=== PATIENT | female | born 1960 | race Caucasian/White ===

== ENCOUNTER 2016-07-18 11:35 | Emergency (ER) | payer MEDICAID ==
[~2016-07-18] VITALS: Ht 157.5 cm; Wt 81.8 kg
[~2016-07-18 11:35] MED LIST: AMARYL1 MG PO; AMOXICILLIN 50500 MG PO; AMOXICILLIN 8751 TAB PO; DIOVAN/HCT 12.51 TA1; FIORICET 325 MG1 TA1 PO; GLUCOPHAGE XR500 M1; GLUCOPHAGE XR500 M1 PO; GLUCOPHAGE500 MG/TAB PO; GUAIFEN AC 10120 ML PO; MOTRIN100 M1 PO; NO HOME MEDICATIONS; NORCO 325 MG-51 TAB PO; PHENERGAN 25 TA25 MG PO; PHENERGAN25 MG RC; PRINIVIL10 MG PO; ROBAXIN 75750 MG/TAB PO; SUDAFED 12HR120 MG PO; TYLENOL 325MG325 MG PO; XYAL5 MG; ZOFRAN 4MG T4 MG/TAB PO; ZOFRAN ODT4 MG PO
[2016-07-18 11:38] VITALS: TEMP 97
[2016-07-18 12:35] LABS: BASO # 0.1 (0.0-0.2); EOS # 0.1 (0.0-0.7); EOS % 1.1 % (0-4.0); GRAN # 3.3 (1.4-6.5); GRAN % 54.1 % (42.2-75.2); HEMATOCRIT 43.1 % (37.0-47.0); HEMOGLOBIN 14.7 g/dl (12.5-16.0); LYMPH # 2.3 (1.2-3.4); LYMPH % 36.7 % (20.0-51.0); MEAN CELL VOLUME 92 fl (80.0-100.0); MEAN CORPUSCULAR HEMOGLOBIN 31 pg (27.0-31.0); MEAN CORPUSCULAR HGB CONC 34 g/dl (33.0-37.0); MEAN PLATELET VOLUME 9.9 fl (7.4-10.4); MONO # 0.4 (0.1-0.6); MONO % 6.8 % (1.7-9.3); PLATELET COUNT 327 K/mm3 (130-400); RED BLOOD COUNT 4.69 M/mm3 (4.10-5.30); REDCELL DISTRIBUTION WIDTH-CV 12.5 % (11.5-14.5); WHITE BLOOD COUNT 6.2 K/mm3 (4.8-10.8)
[2016-07-18 12:55] LABS: ANION GAP 13 mmol/L (7-16); BLOOD UREA NITROGEN 9 mg/dL (7-17); CALCIUM 9.9 mg/dL (8.4-10.2); CARBON DIOXIDE 28 mmol/L (22-30); CHLORIDE 96 mmol/L (98-107); CREATININE, serum 0.51 mg/dL (0.52-1.25); GLUCOSE 339 mg/dL (74-106); POTASSIUM 4.1 mmol/L (3.4-5.0); SODIUM 137 mmol/L (137-145)
[2016-07-18 12:58] LABS: ACETAMINOPHEN < 10 ug/mL (10-30); SALICYLATE < 1.0 mg/dL
[2016-07-18 12:59] LABS: AMPHETAMINE URINE NEGATIVE; BARBITURATES URINE NEGATIVE; BENZODIAZEPINES URINE NEGATIVE; BUPRENORPHINE URINE NEGATIVE; METHADONE URINE NEGATIVE; OPIATES URINE NEGATIVE; OXYCODONE URINE NEGATIVE; PHENCYCLIDINE URINE NEGATIVE; PROPOXYPHENE URINE NEGATIVE; THC CANNABINOIDS URINE NEGATIVE
[2016-07-18] MEDS ORDERED: GLUCOPHAGE500 MG/TAB PO (15:56)
[2016-07-18 16:08] VITALS: BP 140/95; PULSE 80
== END 2016-07-18 16:09 | disposition home or self-care (01) ==
LOC: COL.ER 11:35
PROVIDERS: Physician Assistant
DX: R45.851 Suicidal ideations (principal); R45.1 Restlessness and agitation; F32.9 Major depressive disorder, single episode, unspecified; E11.9 Type 2 diabetes mellitus without complications; T38.3X6A Underdosing of insulin and oral hypoglycemic [antidiabetic] drugs, initial encounter

== ENCOUNTER 2016-09-10 11:12 | Emergency (ER) | payer MEDICAID ==
[~2016-09-10] VITALS: Ht 157.5 cm; Wt 81.8 kg
[2016-09-10 11:15] VITALS: TEMP 98
[2016-09-10 12:24] LABS: BASO # 0.1 (0.0-0.2); BASO % 0.9 % (0.0-2.0); EOS # 0.1 (0.0-0.7); EOS % 1.1 % (0-4.0); GRAN # 4.2 (1.4-6.5); GRAN % 53.1 % (42.2-75.2); HEMATOCRIT 41.8 % (37.0-47.0); HEMOGLOBIN 14.6 g/dl (12.5-16.0); LYMPH % 38.4 % (20.0-51.0); MEAN CELL VOLUME 90 fl (80.0-100.0); MEAN CORPUSCULAR HEMOGLOBIN 32 pg (27.0-31.0); MEAN CORPUSCULAR HGB CONC 35 g/dl (33.0-37.0); MEAN PLATELET VOLUME 10.2 fl (7.4-10.4); MONO # 0.5 (0.1-0.6); MONO % 6.2 % (1.7-9.3); PLATELET COUNT 315 K/mm3 (130-400); RED BLOOD COUNT 4.64 M/mm3 (4.10-5.30); REDCELL DISTRIBUTION WIDTH-CV 12.5 % (11.5-14.5); WHITE BLOOD COUNT 7.9 K/mm3 (4.8-10.8)
[2016-09-10 12:34] LABS: ADJUSTED CALCIUM 9.4 mg/dL (8.4-10.2); ALANINE AMINOTRANSFERASE 16 U/L (9-52); ALBUMIN 4.4 gm/dL (3.5-5.0); ALKALINE PHOSPHATASE 86 U/L (50-136); ANION GAP 14 mmol/L (7-16); BILIRUBIN,TOTAL 0.7 mg/dL (0.0-1.0); BLOOD UREA NITROGEN 9 mg/dL (7-17); CALCIUM 9.7 mg/dL (8.4-10.2); CARBON DIOXIDE 24 mmol/L (22-30); CHLORIDE 98 mmol/L (98-107); GLUCOSE 289 mg/dL (74-106); POTASSIUM 3.7 mmol/L (3.4-5.0); SODIUM 137 mmol/L (137-145)
[2016-09-10 12:35] LABS: ACETAMINOPHEN < 10 ug/mL (10-30); SALICYLATE < 1.0 mg/dL
[2016-09-10 12:54] LABS: AMPHETAMINE URINE NEGATIVE; BARBITURATES URINE NEGATIVE; BENZODIAZEPINES URINE NEGATIVE; BUPRENORPHINE URINE NEGATIVE; METHADONE URINE NEGATIVE; OPIATES URINE NEGATIVE; OXYCODONE URINE NEGATIVE; PHENCYCLIDINE URINE NEGATIVE; PROPOXYPHENE URINE NEGATIVE; THC CANNABINOIDS URINE NEGATIVE
[2016-09-10 13:04] VITALS: BP 159/107
[2016-09-10] MEDS ORDERED: GLUCOPHAGE500 MG/TAB PO (15:01)
[2016-09-10 15:47] VITALS: PULSE 89
== END 2016-09-10 15:48 | disposition home or self-care (01) ==
LOC: COL.ER 11:12
PROVIDERS: Nurse Practitioner
DX: R45.851 Suicidal ideations (principal); E11.65 Type 2 diabetes mellitus with hyperglycemia; Z79.84 Long term (current) use of oral hypoglycemic drugs; T38.3X6A Underdosing of insulin and oral hypoglycemic [antidiabetic] drugs, initial encounter; Z91.138 Patient's unintentional underdosing of medication regimen for other reason

== ENCOUNTER 2016-10-10 18:06 | Emergency (ER) | payer MEDICAID ==
[~2016-10-10] VITALS: Ht 157.5 cm; Wt 81.8 kg
[2016-10-10 18:07] VITALS: TEMP 98.3
[2016-10-10] MEDS ORDERED: TYLENOL 500MG500 MG PO (18:12)
[2016-10-10] MEDS ORDERED: ROBAXIN 75750 MG/TAB PO (18:13)
[2016-10-10 18:51] LABS: BASO # 0.1 (0.0-0.2); EOS # 0.2 (0.0-0.7); EOS % 2.3 % (0-4.0); GRAN # 3.6 (1.4-6.5); GRAN % 51.9 % (42.2-75.2); HEMATOCRIT 39.4 % (37.0-47.0); HEMOGLOBIN 13.7 g/dl (12.5-16.0); LYMPH # 2.6 (1.2-3.4); MEAN CELL VOLUME 91 fl (80.0-100.0); MEAN CORPUSCULAR HEMOGLOBIN 32 pg (27.0-31.0); MEAN CORPUSCULAR HGB CONC 35 g/dl (33.0-37.0); MEAN PLATELET VOLUME 10.2 fl (7.4-10.4); MONO # 0.5 (0.1-0.6); MONO % 6.5 % (1.7-9.3); PLATELET COUNT 301 K/mm3 (130-400); RED BLOOD COUNT 4.31 M/mm3 (4.10-5.30); REDCELL DISTRIBUTION WIDTH-CV 12.4 % (11.5-14.5); WHITE BLOOD COUNT 6.9 K/mm3 (4.8-10.8)
[2016-10-10 19:04] LABS: ALBUMIN 3.9 gm/dL (3.5-5.0); BILIRUBIN,TOTAL 0.6 mg/dL (0.0-1.0); C-REACTIVE PROTEIN 1.1 mg/dL (0.0-0.9); CALCIUM 8.9 mg/dL (8.4-10.2); CREATININE, serum 0.46 mg/dL (0.52-1.25); POTASSIUM 4.1 mmol/L (3.4-5.0); TOTAL PROTEIN 7.3 gm/dL (6.4-8.2)
[2016-10-10] MEDS ORDERED: TYLENOL W/COD1 UDTAB PO (20:08)
[2016-10-10 20:30] VITALS: BP 147/84; PULSE 75
== END 2016-10-10 20:30 | disposition home or self-care (01) ==
LOC: COL.ER 18:06
PROVIDERS: Emergency Medicine
DX: M54.5 Low back pain (principal); M54.2 Cervicalgia; E11.65 Type 2 diabetes mellitus with hyperglycemia; Z79.84 Long term (current) use of oral hypoglycemic drugs; I10 Essential (primary) hypertension
CPT/HCPCS: J1885

== ENCOUNTER 2016-11-18 18:29 | Observation (INO) | payer MEDICAID ==
[~2016-11-18] VITALS: Ht 157.5 cm; Wt 92.9 kg
[~2016-11-18 18:29] MED LIST changes: +TYLENOL 500MG500 MG PO; +TYLENOL W/COD1 UDTAB PO
[2016-11-18 19:32] LABS: AMPHETAMINE URINE NEGATIVE; BARBITURATES URINE NEGATIVE; BENZODIAZEPINES URINE NEGATIVE; BUPRENORPHINE URINE NEGATIVE; METHADONE URINE NEGATIVE; OPIATES URINE NEGATIVE; OXYCODONE URINE NEGATIVE; PHENCYCLIDINE URINE NEGATIVE; PROPOXYPHENE URINE NEGATIVE; THC CANNABINOIDS URINE NEGATIVE
[2016-11-18 20:02] LABS: BASO # 0.1 (0.0-0.2); EOS # 0.2 (0.0-0.7); EOS % 2.3 % (0-4.0); GRAN # 4.4 (1.4-6.5); GRAN % 51.6 % (42.2-75.2); HEMATOCRIT 42.6 % (37.0-47.0); HEMOGLOBIN 14.7 g/dl (12.5-16.0); LYMPH # 3.3 (1.2-3.4); MEAN CELL VOLUME 91 fl (80.0-100.0); MEAN CORPUSCULAR HEMOGLOBIN 32 pg (27.0-31.0); MEAN CORPUSCULAR HGB CONC 35 g/dl (33.0-37.0); MEAN PLATELET VOLUME 10.4 fl (7.4-10.4); MONO # 0.6 (0.1-0.6); MONO % 6.8 % (1.7-9.3); PLATELET COUNT 317 K/mm3 (130-400); RED BLOOD COUNT 4.66 M/mm3 (4.10-5.30); REDCELL DISTRIBUTION WIDTH-CV 12.5 % (11.5-14.5); WHITE BLOOD COUNT 8.6 K/mm3 (4.8-10.8)
[2016-11-18 20:07] LABS: ADJUSTED CALCIUM 9.5 mg/dL (8.4-10.2); ALANINE AMINOTRANSFERASE 18 U/L (9-52); ALBUMIN 4.6 gm/dL (3.5-5.0); ALKALINE PHOSPHATASE 93 U/L (50-136); ANION GAP 14 mmol/L (7-16); BILIRUBIN,TOTAL 0.6 mg/dL (0.0-1.0); BLOOD UREA NITROGEN 11 mg/dL (7-17); CARBON DIOXIDE 25 mmol/L (22-30); CHLORIDE 98 mmol/L (98-107); CREATININE, serum 0.51 mg/dL (0.52-1.25); GLUCOSE 272 mg/dL (74-106); POTASSIUM 3.8 mmol/L (3.4-5.0); SODIUM 137 mmol/L (137-145); TOTAL PROTEIN 8.5 gm/dL (6.4-8.2)
[2016-11-18 20:08] LABS: ACETAMINOPHEN < 10 ug/mL (10-30); SALICYLATE < 1.0 mg/dL
[2016-11-19 15:57] VITALS: PULSE 76; TEMP 97.7
[2016-11-19 21:05] VITALS: BP 123/81; PULSE 79; TEMP 97.8
[2016-11-20 00:20] VITALS: BP 120/75; PULSE 76; TEMP 98.5
[2016-11-20 07:10] LABS: ADJUSTED CALCIUM 9.4 mg/dL (8.4-10.2); ALBUMIN 3.7 gm/dL (3.5-5.0); BILIRUBIN,TOTAL 0.5 mg/dL (0.0-1.0); CALCIUM 9.2 mg/dL (8.4-10.2); CREATININE, serum 0.55 mg/dL (0.52-1.25); POTASSIUM 3.9 mmol/L (3.4-5.0); TOTAL PROTEIN 7.1 gm/dL (6.4-8.2)
[2016-11-20 07:34] VITALS: BP 132/84; PULSE 84; TEMP 98.2
[2016-11-20 12:16] VITALS: BP 128/80; PULSE 90; TEMP 97.8
[2016-11-20 16:07] VITALS: BP 124/76; PULSE 90; TEMP 98.3
[2016-11-20 20:20] VITALS: BP 142/88; PULSE 96; TEMP 97.8
[2016-11-20 22:36] VITALS: BP 144/88; PULSE 71; TEMP 97.7
[2016-11-21 03:26] VITALS: BP 131/83; PULSE 85; TEMP 98.3
[2016-11-21 08:19] VITALS: BP 162/107; PULSE 95; TEMP 97.3
[2016-11-21 11:32] VITALS: BP 147/89; PULSE 91; TEMP 98.7
[2016-11-21 15:28] VITALS: BP 134/81; PULSE 78; TEMP 98.1
== END 2016-11-21 19:26 ==
LOC: COL.ER 18:29 → MEDICAL 11-19 13:15
PROVIDERS: Nurse Practitioner; Psychiatry & Neurology Psychiatry
DX: F29 Unspecified psychosis not due to a substance or known physiological condition (principal); E10.9 Type 1 diabetes mellitus without complications
CPT/HCPCS: 90791-AI; G0378; J1200; J1630; J2060

== ENCOUNTER 2017-04-16 13:25 | Emergency (ER) | payer MEDICAID ==
[~2017-04-16] VITALS: Ht 157.5 cm; Wt 94.1 kg
[2017-04-16 13:27] VITALS: TEMP 96.9
[2017-04-16 16:27] VITALS: BP 131/91; PULSE 74
[2017-04-16] MEDS ORDERED: NORCO 325 MG-51 TAB PO (17:09)
[2017-04-16] MEDS ORDERED: FLEXERIL 1010 MG/TAB PO (17:09)
== END 2017-04-16 18:18 | disposition home or self-care (01) ==
LOC: COL.ER 13:25
DX: S16.1XXA Strain of muscle, fascia and tendon at neck level, initial encounter (principal); E11.9 Type 2 diabetes mellitus without complications; F32.9 Major depressive disorder, single episode, unspecified; F41.9 Anxiety disorder, unspecified; Z79.84 Long term (current) use of oral hypoglycemic drugs

== ENCOUNTER 2017-04-17 16:36 | Emergency (ER) | payer MEDICAID ==
[~2017-04-17] VITALS: Ht 157.5 cm; Wt 90.9 kg
[~2017-04-17 16:36] MED LIST changes: +FLEXERIL 1010 MG/TAB PO
[2017-04-17 16:39] VITALS: BP 135/95; TEMP 98.3
[2017-04-17 19:27] VITALS: PULSE 92
== END 2017-04-17 19:36 | disposition home or self-care (01) ==
LOC: COL.ER 16:36
DX: R45.1 Restlessness and agitation (principal); Z79.84 Long term (current) use of oral hypoglycemic drugs

== ENCOUNTER → 2017-10-19 | Outpatient (CLI) | payer MEDICAID | LOC: COL.VAS 13:31 | DX: M79.89 Other specified soft tissue disorders (principal) ==

== ENCOUNTER 2018-05-24 11:45 | Emergency (ER) | payer MEDICAID ==
[~2018-05-24] VITALS: Ht 157.5 cm; Wt 100.5 kg
[2018-05-24 11:47] VITALS: TEMP 97
[2018-05-24] MEDS ORDERED: JANUMXR1000-50 PO (12:27)
[2018-05-24] MEDS ORDERED: PRINIVIL10 MG PO (12:28)
[2018-05-24 13:22] LABS: BASO # 0.1 (0.0-0.2); BASO % 0.7 % (0.0-2.0); EOS # 0.1 (0.0-0.7); GRAN # 5.2 (1.4-6.5); GRAN % 65.3 % (42.2-75.2); HEMATOCRIT 40.6 % (37.0-47.0); HEMOGLOBIN 13.9 g/dl (12.5-16.0); LYMPH # 2.2 (1.2-3.4); LYMPH % 26.8 % (20.0-51.0); MEAN CELL VOLUME 91 fl (80.0-100.0); MEAN CORPUSCULAR HEMOGLOBIN 31 pg (27.0-31.0); MEAN CORPUSCULAR HGB CONC 34 g/dl (33.0-37.0); MEAN PLATELET VOLUME 9.5 fl (7.4-10.4); MONO # 0.5 (0.1-0.6); PLATELET COUNT 338 K/mm3 (130-400); RED BLOOD COUNT 4.44 M/mm3 (4.10-5.30); REDCELL DISTRIBUTION WIDTH-CV 12.9 % (11.5-14.5)
[2018-05-24 13:31] LABS: ALBUMIN 4.2 gm/dL (3.5-5.0); BILIRUBIN,TOTAL 0.4 mg/dL (0.0-1.0); CALCIUM 9.7 mg/dL (8.4-10.2); CREATININE, serum 0.56 mg/dL (0.52-1.25); POTASSIUM 4.2 mmol/L (3.4-5.0); TOTAL PROTEIN 7.9 gm/dL (6.4-8.2)
[2018-05-24 14:20] VITALS: BP 146/70; PULSE 82
== END 2018-05-24 14:20 | disposition home or self-care (01) ==
LOC: COL.ER 11:45
PROVIDERS: Nurse Practitioner
DX: M25.522 Pain in left elbow (principal); M25.521 Pain in right elbow; M25.542 Pain in joints of left hand; M25.541 Pain in joints of right hand; M25.511 Pain in right shoulder; M25.512 Pain in left shoulder; M25.562 Pain in left knee; M25.561 Pain in right knee; M25.571 Pain in right ankle and joints of right foot; M25.572 Pain in left ankle and joints of left foot; J45.909 Unspecified asthma, uncomplicated; E11.9 Type 2 diabetes mellitus without complications; I10 Essential (primary) hypertension; F41.9 Anxiety disorder, unspecified; Z79.84 Long term (current) use of oral hypoglycemic drugs

== ENCOUNTER 2018-06-21 06:19 | Inpatient (IN) | payer MEDICAID ==
[~2018-06-21] VITALS: Ht 157.5 cm; Wt 89.9 kg
[2018-06-21] VITALS (465 sets, daily range): BP systolic 73–119; BP diastolic 42–91; PULSE 92–107; TEMP 97.6–97.7; O2SAT 85–100
[~2018-06-21 06:19] MED LIST changes: +JANUMXR1000-50 PO
[2018-06-21 06:42] LABS: BASO # 0.1 (0.0-0.2); EOS # 0.1 (0.0-0.7); EOS % 0.9 % (0-4.0); GRAN # 5.8 (1.4-6.5); GRAN % 61.3 % (42.2-75.2); HEMATOCRIT 41.9 % (37.0-47.0); HEMOGLOBIN 13.9 g/dl (12.5-16.0); LYMPH # 2.8 (1.2-3.4); LYMPH % 29.7 % (20.0-51.0); MEAN CELL VOLUME 94 fl (80.0-100.0); MEAN CORPUSCULAR HEMOGLOBIN 31 pg (27.0-31.0); MEAN CORPUSCULAR HGB CONC 33 g/dl (33.0-37.0); MEAN PLATELET VOLUME 9.9 fl (7.4-10.4); MONO # 0.6 (0.1-0.6); MONO % 6.7 % (1.7-9.3); PLATELET COUNT 397 K/mm3 (130-400); RED BLOOD COUNT 4.48 M/mm3 (4.10-5.30); REDCELL DISTRIBUTION WIDTH-CV 13.1 % (11.5-14.5)
[2018-06-21 06:48] LABS: PROTHROMBIN TIME 11.7 SECONDS (9.7-12.8)
[2018-06-21] MEDS ORDERED: CANA300T PO (06:49)
[2018-06-21 06:58] LABS: ALBUMIN 4.1 gm/dL (3.5-5.0); BILIRUBIN,TOTAL 0.4 mg/dL (0.0-1.0); CALCIUM 9.7 mg/dL (8.4-10.2); CREATININE, serum 0.72 mg/dL (0.52-1.25); TOTAL PROTEIN 7.8 gm/dL (6.4-8.2)
[2018-06-21 07:11] LABS: TROPONIN-I 0.161 ng/mL (0.000-0.035)
[2018-06-21 07:47] LABS: PARTIAL THROMBOPLASTIN TIME 33.1 SECONDS (26.0-37.0)
--- NOTE | 2018-06-21 08:04 | NUR ---
ALL MEDS GIVEN VIA VERBAL WITH READBACK FROM DR. CHIN ALEXANDER FOR ADMIN TIMES.
--- NOTE | 2018-06-21 09:30 | NUR ---
Patient admitted to ICU#3 via bed from gold leaf laborer, right femoral groin site soft without hematoma, dressing CDI, safeguard in place. Patient instructed to keep head flat on pillow and right leg straight, patient verbalized understanding. Patient with cough and continues to move around in bed. Call light within reach.
--- NOTE | 2018-06-21 10:32 | NUR ---
Patient with emesis, pressure held to right femoral groin site, zofran given per order.-
[2018-06-21 10:42] LABS: CHOLESTEROL RISK RATIO 6.3
[2018-06-21 10:59] LABS: TROPONIN-I 2.1 ng/mL (0.000-0.035)
--- NOTE | 2018-06-21 12:00 | NUR ---
Patient continues to dry heave and move right leg, large hematoma noted to right femoral groin, manual pressure applied to reduce hematoma, Dr. Wilson was called, new orders received to remove safe guard and apply a femostop. LUCINDA Blas and LUCINDA Hannah in room at this time, with this RN.
[2018-06-21 12:34] LABS: HEMATOCRIT 39.7 % (37.0-47.0); HEMOGLOBIN 13.3 g/dl (12.5-16.0)
--- NOTE | 2018-06-21 12:58 | NUR ---
ALANA and ALANA student attended clinical rounding and met with patient to discuss discharge planning. Patient reports she lives alone and does not have an er contact except her [facility] supportive employment case manager Meghana Martin. She asked this SW to call her and provide an update. Patient lives alone in [place] and does not have any services at this time. ALANA called Meghana at [facility] who agrees that she has no living family to be her contact. 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 Meghana was with her yesterday and helped her meat pickler the new medication. She reports her PCP is Melvina Willett at [facility] in [place] and [facility] Meghana asked for a call tomorrow to update on dc. Meghana Magallanes () [phone] work [phone] Cell (do not give patient her cell phone number)
--- NOTE | 2018-06-21 13:19 | NUR ---
technical recruiter in room for echo.
--- NOTE | 2018-06-21 14:15 | NUR ---
AIVS here to place picc line.
[2018-06-21 15:18] LABS: PARTIAL THROMBOPLASTIN TIME 62.8 SECONDS (26.0-37.0)
--- NOTE | 2018-06-21 16:00 | NUR ---
Patient resting quietly, femostop in place, denies needs at this time. Call light within reach.
[2018-06-21 18:12] LABS: HEMATOCRIT 37.1 % (37.0-47.0); HEMOGLOBIN 12.2 g/dl (12.5-16.0)
--- NOTE | 2018-06-21 19:18 | NUR ---
Bedside report given to LUCINDA Smith.
[2018-06-22] VITALS (697 sets, daily range): BP systolic 83–117; BP diastolic 42–79; PULSE 92–106; TEMP 97.8–99.1; O2SAT 87–100
--- NOTE | 2018-06-22 | NUR ---
Patient resting in bed, no issues to report. Cardiac cath site bruised, soft, no signs of hematoma, no drainage noted.
[2018-06-22 00:38] LABS: HEMOGLOBIN 11.7 g/dl (12.5-16.0)
[2018-06-22 00:40] LABS: HEMATOCRIT 35.1 % (37.0-47.0)
[2018-06-22 05:01] LABS: BASO # 0.1 (0.0-0.2); BASO % 0.7 % (0.0-2.0); EOS % 0.2 % (0-4.0); GRAN # 8.7 (1.4-6.5); GRAN % 66.4 % (42.2-75.2); HEMOGLOBIN 11.1 g/dl (12.5-16.0); LYMPH # 3.1 (1.2-3.4); MEAN CELL VOLUME 95 fl (80.0-100.0); MEAN CORPUSCULAR HEMOGLOBIN 31 pg (27.0-31.0); MEAN CORPUSCULAR HGB CONC 33 g/dl (33.0-37.0); MEAN PLATELET VOLUME 10.2 fl (7.4-10.4); MONO # 1.1 (0.1-0.6); MONO % 8.3 % (1.7-9.3); PLATELET COUNT 366 K/mm3 (130-400); RED BLOOD COUNT 3.58 M/mm3 (4.10-5.30); REDCELL DISTRIBUTION WIDTH-CV 13.3 % (11.5-14.5)
[2018-06-22 05:17] LABS: CALCIUM 8.6 mg/dL (8.4-10.2); CREATININE, serum 0.62 mg/dL (0.52-1.25)
--- NOTE | 2018-06-22 07:10 | NUR ---
ALL SEDATION MEDICATIONS WILL BE GIVEN DURING PROCEDURE WITH VERBAL ORDER FROM MD CALDWELL. SEE MERGE FOR ADMIN TIMES. WILL BE GOING LEFT GROIN FOR ACCESS.
--- NOTE | 2018-06-22 11:02 | NUR ---
floor worker well service attended clinical rounds. Patient will remain in ICU today. Worker contacted patient's caseworker intake, Meghana Martin and provided update. Patient was able to speak on the phone to Meghana.
[2018-06-22 12:29] LABS: HEMOGLOBIN 11.1 g/dl (12.5-16.0)
[2018-06-22 12:38] LABS: PARTIAL THROMBOPLASTIN TIME 43.3 SECONDS (26.0-37.0)
--- NOTE | 2018-06-22 19:15 | NUR ---
REPORT RECEIVED FROM LUCINDA JUAREZ AT [facility]. LINES AND MEDS REVIEWED.
[2018-06-22 19:34] LABS: HEMOGLOBIN 10.1 g/dl (12.5-16.0)
--- NOTE | 2018-06-22 19:40 | NUR ---
RECEIVED REPORT FROM LUCINDA PROCTOR.
[2018-06-22 19:42] LABS: HEMATOCRIT 31.1 % (37.0-47.0)
--- NOTE | 2018-06-22 20:30 | NUR ---
PT'S DRESSING AT BOTH SITES IN THE GROIN CHAGED PT A LITTLE BIT DIAPHORETIC AND DRESSING WAS COMING OFF. NOW CDI. NO S/SX OF BLEEDING NOTED.
--- NOTE | 2018-06-22 21:00 | NUR ---
DRESSING ON R CHEST PORT CHANGED PT DIAPHORETIC. NOW CDI. GOOD BLOOD RETURN NOTED AND PORT FLUSHING GOOD WELL.
[2018-06-23] VITALS (416 sets, daily range): BP systolic 101–116; BP diastolic 67–75; PULSE 83–98; TEMP 97.8–98.8; O2SAT 89–98
[2018-06-23 00:34] LABS: HEMATOCRIT 29.9 % (37.0-47.0); HEMOGLOBIN 9.7 g/dl (12.5-16.0)
--- NOTE | 2018-06-23 02:19 | NUR ---
HEP XA WAS 0.23 AT 1921. HEPARIN DRIP ADJUSTED/TITRATED PER PROTOCOL.
--- NOTE | 2018-06-23 03:19 | NUR ---
PT'S HEP XA WAS 0.37 AT 0250, NO CHANGE IN RATE BASED ON PROTOCOL. NEXT HEP XA ORDERED AND DUE TODAY AT 0900 AM.
[2018-06-23 05:22] LABS: BASO # 0.1 (0.0-0.2); BASO % 0.6 % (0.0-2.0); EOS % 0.2 % (0-4.0); GRAN % 71.5 % (42.2-75.2); LYMPH # 2.4 (1.2-3.4); LYMPH % 19.3 % (20.0-51.0); MEAN CELL VOLUME 97 fl (80.0-100.0); MEAN CORPUSCULAR HGB CONC 32 g/dl (33.0-37.0); MEAN PLATELET VOLUME 10.3 fl (7.4-10.4); MONO % 7.9 % (1.7-9.3); PLATELET COUNT 272 K/mm3 (130-400); RED BLOOD COUNT 3.04 M/mm3 (4.10-5.30); REDCELL DISTRIBUTION WIDTH-CV 13.4 % (11.5-14.5)
[2018-06-23 05:25] LABS: HEMATOCRIT 29.4 % (37.0-47.0); HEMOGLOBIN 9.4 g/dl (12.5-16.0); MEAN CORPUSCULAR HEMOGLOBIN 31 pg (27.0-31.0)
[2018-06-23 05:33] LABS: INR 1.2 (0.8-3.0); PROTHROMBIN TIME 13.3 SECONDS (9.7-12.8)
[2018-06-23 05:36] LABS: CALCIUM 8.5 mg/dL (8.4-10.2); CREATININE, serum 0.58 mg/dL (0.52-1.25); MAGNESIUM 1.8 mg/dL (1.6-2.3); POTASSIUM 4.1 mmol/L (3.4-5.0)
--- NOTE | 2018-06-23 08:00 | NUR ---
PATIENT LAYING IN BED. DENIES ANY CONCERNS AT THIS TIME. SHE STATES SHE IS READY TO EAT BREATHFAST. MENU WAS GIVEN. DR. KIM CAME BY AND REQUESTED THE THRASHER BE TAKEN OUT WELL THE FLUIDS AND HEPARIN DRIP STOPPED.
--- NOTE | 2018-06-23 10:00 | NUR ---
HEPARIN DRIP RESTARTED PER DR. BYRNES'S ORDERS. PATIENT WILL NOT BE DISCHARGED
--- NOTE | 2018-06-23 12:08 | NUR ---
REPORT CALLED TO LUCINDA WHELAN ON MEDICAL. PLAN OF CARE DISCUSSED. PATIENT WILL BE PLACED ON TELEMETRY AND TAKEN BY WHEELCHAIR TO ROOM 308.
--- NOTE | 2018-06-23 12:16 | NUR ---
REPORT RECEIVED FROM LUCINDA PAGE.
--- NOTE | 2018-06-23 14:00 | NUR ---
patient transfered from ICU .arrived to room 308 via wheelchair.patient is stand by assist.a/ox4.denies pain or discomfort.breathing even and unlabored.LSCTA.tele shows NSR.gauze dressings and tegaderm to bilat groin.no hematoma noted on palpation.patient denies pain to groin.bruise noted to groin.Heparin drip infusing.Picc to AIDEE.patient denies any needs at this time. call light in reach
[2018-06-24 03:29] VITALS: BP 103/74; PULSE 93; TEMP 98.8
--- NOTE | 2018-06-24 04:09 | NUR ---
PT HAD UNEVENTFUL NOC. NO C/O PAIN. APPEARS TO HAVE RESTED WELL. FEMORAL SITES REMAIN DRESSED AND DRESSING DRY AND INTACT. HEPARIN GTT INFUSING WITHOUT ISSUE, RATE ADJUSTED PER PROTOCOL.
[2018-06-24 06:53] LABS: BASO # 0.1 (0.0-0.2); BASO % 0.6 % (0.0-2.0); EOS # 0.2 (0.0-0.7); EOS % 1.5 % (0-4.0); GRAN # 7.1 (1.4-6.5); GRAN % 65.5 % (42.2-75.2); LYMPH # 2.4 (1.2-3.4); LYMPH % 22.6 % (20.0-51.0); MEAN CELL VOLUME 93 fl (80.0-100.0); MEAN CORPUSCULAR HGB CONC 33 g/dl (33.0-37.0); MEAN PLATELET VOLUME 10.2 fl (7.4-10.4); MONO % 9.2 % (1.7-9.3); PLATELET COUNT 281 K/mm3 (130-400); RED BLOOD COUNT 2.88 M/mm3 (4.10-5.30); REDCELL DISTRIBUTION WIDTH-CV 13.2 % (11.5-14.5)
[2018-06-24 07:04] LABS: INR 1.3 (0.8-3.0); PROTHROMBIN TIME 14.4 SECONDS (9.7-12.8)
[2018-06-24 07:13] LABS: CALCIUM 8.5 mg/dL (8.4-10.2); CREATININE, serum 0.51 mg/dL (0.52-1.25); POTASSIUM 3.8 mmol/L (3.4-5.0)
[2018-06-24 07:21] VITALS: BP 108/73; PULSE 94; TEMP 98.8
[2018-06-24 07:21] LABS: HEMATOCRIT 26.8 % (37.0-47.0); HEMOGLOBIN 8.8 g/dl (12.5-16.0); MEAN CORPUSCULAR HEMOGLOBIN 31 pg (27.0-31.0)
--- NOTE | 2018-06-24 10:10 | NUR ---
Assessment complete.patient awake,a/o x4.denies pain or discomfort at this time.breathing even and unlabored.heparin gtts infusing.Hep xa rate unchanged per protocol.recheck at noon.PICC to AIDEE patent.bilat groin sites,CDI.dressing intact.no hematoma noted on palpation.patient denies nay needs at this time.call light in reach
[2018-06-24 11:03] VITALS: BP 109/63; PULSE 94; TEMP 98.4
--- NOTE | 2018-06-24 11:40 | NUR ---
HEPARIN DRIP ON HOLD PENDING GI CONSULT.
[2018-06-24 15:56] VITALS: BP 132/88; PULSE 82; TEMP 98.1
--- NOTE | 2018-06-24 15:59 | NUR ---
Met with patient due to concerns of not being able to obtain her medications when she leave if she leaves prior to Monday. Patient reports that she does not have any way to obtain medications and be able to get home. SW called patient shelter case manager at [facility] and she stated that she could not help the patient until Monday and stated that the patient was to needy. ALANA offered the patient a taxi voucher to the Pharmacy to obtain medications and on home [place] [facility] Please assist with voucher for taxi if shelter case manager unable to transport prior to a DC on Monday.
--- NOTE | 2018-06-24 18:20 | NUR ---
patient has had an unevenful day.sitting up on recliner.Gi ordered occult stool.patient aware.GI is waiting for result from occult inorder to proceed with care.Heparin still on hold.will continue to monitor.Vss.call light in reach
[2018-06-24 20:50] VITALS: BP 132/73; PULSE 84; TEMP 98
--- NOTE | 2018-06-24 21:51 | NUR ---
PT RESTING IN BED A+OX4. reports no pain. no soa. pt on 2L NC. no needs at this time. shift assessment complete. call light inreach
[2018-06-25 00:05] VITALS: BP 115/78; PULSE 95; TEMP 99.1
--- NOTE | 2018-06-25 01:55 | NUR ---
pt has significant bruising on right hip. from inner thigh to outer hip. blue/purple/yellow. no hard nodules noted.
[2018-06-25 03:45] VITALS: BP 91/53; PULSE 89; TEMP 98.6
--- NOTE | 2018-06-25 05:31 | NUR ---
had an uneventful night. pt resting in bed, no pain during night. pt wore 2L O2 via NC throughout night. reports no SOA. PICC flushes well, blood return noted. no needs at this time. call light in reach
[2018-06-25 06:48] LABS: INR 1.3 (0.8-3.0); PROTHROMBIN TIME 14.5 SECONDS (9.7-12.8)
[2018-06-25 07:14] VITALS: BP 119/75; PULSE 89; TEMP 98
--- NOTE | 2018-06-25 07:15 | NUR ---
report given to Cecilia Serna RN. pt reports no needs at this time
[2018-06-25 07:42] LABS: BASO # 0.1 (0.0-0.2); BASO % 0.6 % (0.0-2.0); EOS # 0.2 (0.0-0.7); EOS % 2.3 % (0-4.0); GRAN # 6.6 (1.4-6.5); GRAN % 65.1 % (42.2-75.2); LYMPH # 2.3 (1.2-3.4); LYMPH % 22.5 % (20.0-51.0); MEAN CELL VOLUME 94 fl (80.0-100.0); MEAN CORPUSCULAR HGB CONC 33 g/dl (33.0-37.0); MEAN PLATELET VOLUME 10.7 fl (7.4-10.4); MONO # 0.9 (0.1-0.6); PLATELET COUNT 279 K/mm3 (130-400); REDCELL DISTRIBUTION WIDTH-CV 13.2 % (11.5-14.5)
[2018-06-25 07:48] LABS: HEMATOCRIT 27.2 % (37.0-47.0); MEAN CORPUSCULAR HEMOGLOBIN 31 pg (27.0-31.0)
[2018-06-25 07:49] LABS: CALCIUM 8.6 mg/dL (8.4-10.2); CREATININE, serum 0.45 mg/dL (0.52-1.25); POTASSIUM 3.5 mmol/L (3.4-5.0)
--- NOTE | 2018-06-25 09:30 | NUR ---
Pt is A+Ox3, pleasant, very talkative, denies chest pain, SOB. She is on RA. physical assessment completed and WNL. PICc to [facility] free of redness, swelling. blood return x2 with easy flush. Pt denies needs, call light in reach
[2018-06-25 11:51] VITALS: BP 119/76; PULSE 83; TEMP 98
--- NOTE | 2018-06-25 13:55 | NUR ---
ALANA met with patient and patient's oscar case technician, Meghana. Patient is interested in home health services through [facility]. ALANA contacted Ac from [facility] and Ac will meet with patient this afternoon. Patient would also like Ac to contact Meghana. ALANA will provide Wilfrid phone number to Ac and fax referral.
[2018-06-25] MEDS ORDERED: PROTONIX 40MG T40 MG PO (16:26)
[2018-06-25] MEDS ORDERED: FERROUS GL325 MG/TAB PO (16:26)
[2018-06-25] MEDS ORDERED: CRESTOR20 MG PO (16:26)
[2018-06-25] MEDS ORDERED: COREG 3.123.125 MG/T PO (16:26)
[2018-06-25] MEDS ORDERED: ASPIRIN E.C. 8181 MG PO (16:26)
[2018-06-25] MEDS ORDERED: GLUCOPHAGE1000 MG PO (16:26)
[2018-06-25] MEDS ORDERED: CANA300T PO (16:26)
[2018-06-25] MEDS ORDERED: BRILINTA90 MG PO (16:26)
[2018-06-25 16:29] VITALS: BP 120/77; PULSE 96; TEMP 98.3
[2018-06-25] MEDS ORDERED: COUMADIN 6MG6 MG/TAB PO (17:01)
[2018-06-25] MEDS ORDERED: LOVENOX 100100 MG/ML SQ (17:01)
--- NOTE | 2018-06-25 19:09 | NUR ---
This RN reviewed discharge instructions with pt, anaswered all questions. Med scripts faxed to pharmacy, and house provided a taxi voucher to get her there then home. PICC to [facility] removed by [facility] J[facility]. Pt dressed and ready to leave. No further questions.
--- NOTE | 2018-06-25 19:11 | NUR ---
Pt had uneventufl day, vitals stable, no c/o pain or chest pressure, she ate well and showered. PICC free of redness, swelling.
== END 2018-06-25 19:11 | disposition home or self-care (01) | DRG 246 ==
LOC: COL.ER 06:19 → ICU 07:40 → MEDICAL 06-23 12:45
PROVIDERS: Emergency Medicine; Family Medicine; Physician Assistant; ADMIT Internal Medicine Cardiovascular Disease
PROC: B2111ZZ Fluoroscopy of Multiple Coronary Arteries using Low Osmolar Contrast (ICD-10-PCS; principal; 2018-06-21)
PROC: 027135Z Dilation of Coronary Artery, Two Arteries with Two Drug-eluting Intraluminal Devices, Percutaneous Approach (ICD-10-PCS; 2018-06-21)
PROC: B2151ZZ Fluoroscopy of Left Heart using Low Osmolar Contrast (ICD-10-PCS; 2018-06-21)
PROC: 4A023N7 Measurement of Cardiac Sampling and Pressure, Left Heart, Percutaneous Approach (ICD-10-PCS; 2018-06-21)
PROC: B41F1ZZ Fluoroscopy of Right Lower Extremity Arteries using Low Osmolar Contrast (ICD-10-PCS; 2018-06-21)
PROC: 027035Z Dilation of Coronary Artery, One Artery with Two Drug-eluting Intraluminal Devices, Percutaneous Approach (ICD-10-PCS; 2018-06-22)
PROC: B41G1ZZ Fluoroscopy of Left Lower Extremity Arteries using Low Osmolar Contrast (ICD-10-PCS; 2018-06-22)
PROC: B2111ZZ Fluoroscopy of Multiple Coronary Arteries using Low Osmolar Contrast (ICD-10-PCS; 2018-06-22)
DX: I21.09 ST elevation (STEMI) myocardial infarction involving other coronary artery of anterior wall (principal); I97.630 Postprocedural hematoma of a circulatory system organ or structure following a cardiac catheterization; I23.6 Thrombosis of atrium, auricular appendage, and ventricle as current complications following acute myocardial infarction; E11.65 Type 2 diabetes mellitus with hyperglycemia; E78.5 Hyperlipidemia, unspecified; I25.5 Ischemic cardiomyopathy; I10 Essential (primary) hypertension; I95.9 Hypotension, unspecified; D64.9 Anemia, unspecified; I25.10 Atherosclerotic heart disease of native coronary artery without angina pectoris
CPT/HCPCS: 99222; 99232-AI; C1725; C1751; C1760; C1769; C1874; C1887; C1894; C8923; C9600; C9601; J0583; J1644; J1815; J2250; J2270; J2405; J2765; J3010; J7030; J7060; Q9957; Q9967

== ENCOUNTER 2018-06-28 03:33 | Emergency (ER) | payer MEDICAID ==
[~2018-06-28] VITALS: Ht 160 cm; Wt 90.9 kg
[2018-06-28 03:33] VITALS: BP 75/61; PULSE 59; TEMP 96.5
[~2018-06-28 03:33] MED LIST changes: +ASPIRIN E.C. 8181 MG PO; +BRILINTA90 MG PO; +CANA300T PO; +COREG 3.123.125 MG/T PO; +COUMADIN 6MG6 MG/TAB PO; +CRESTOR20 MG PO; +FERROUS GL325 MG/TAB PO; +GLUCOPHAGE1000 MG PO; +LOVENOX 100100 MG/ML SQ; +PROTONIX 40MG T40 MG PO
[2018-06-28 04:00] LABS: BASO # 0.1 (0.0-0.2); BASO % 0.5 % (0.0-2.0); EOS # 0.2 (0.0-0.7); EOS % 1.4 % (0-4.0); GRAN # 10.1 (1.4-6.5); GRAN % 68.9 % (42.2-75.2); HEMOGLOBIN 10.1 g/dl (12.5-16.0); LYMPH # 3.1 (1.2-3.4); LYMPH % 21.2 % (20.0-51.0); MEAN CELL VOLUME 97 fl (80.0-100.0); MEAN CORPUSCULAR HEMOGLOBIN 31 pg (27.0-31.0); MEAN CORPUSCULAR HGB CONC 32 g/dl (33.0-37.0); MEAN PLATELET VOLUME 10.6 fl (7.4-10.4); MONO # 1.1 (0.1-0.6); MONO % 7.4 % (1.7-9.3); PLATELET COUNT 284 K/mm3 (130-400); RED BLOOD COUNT 3.22 M/mm3 (4.10-5.30); REDCELL DISTRIBUTION WIDTH-CV 13.2 % (11.5-14.5)
[2018-06-28 04:01] LABS: HEMATOCRIT 31.3 % (37.0-47.0)
[2018-06-28 04:04] LABS: INR 1.5 (0.8-3.0); PROTHROMBIN TIME 17.3 SECONDS (9.7-12.8)
[2018-06-28 04:11] LABS: BILIRUBIN,TOTAL 1.5 mg/dL (0.0-1.0); CALCIUM 9.1 mg/dL (8.4-10.2); CREATININE, serum 0.85 mg/dL (0.52-1.25); POTASSIUM 4.7 mmol/L (3.4-5.0); TOTAL PROTEIN 7.7 gm/dL (6.4-8.2)
[2018-06-28 04:24] LABS: TROPONIN-I 4.88 ng/mL (0.000-0.035)
--- NOTE | 2018-06-28 14:42 | NUR ---
lime kiln worker helper contacted Meghana Martin, comp field case manager from [facility], and advised of patient's . Meghana stated she knows of no known living relatives. Meghana stated that she would not authorize donation. Worker contacted Denise Hickman with Adult [employer] Services and notified of . Denise stated that this would then end their services. Denise provided patient's Payee information (Jian Wayland #[phone]). Jian confirms that there is no known living relatives. Worker confirmed that patient's sister, Delicia, and was cremated at [facility] in [place] (#[phone]). Worker contacted Ana at [facility] and collaborated with Jian and Ana and secured that they would tack picker patient this date and provide cremation with Jina providing payment. Worker contacted Dr Reese and advised of the above and that there were no known living relatives. Dr Reese stated he would sign authorization for cremation in living relatives absence. Jian is aware that patient's belongings will be sent to [facility], including the 46.00 in [place]. Jian stated for [facility] to use that money towards the bill for services.
== END 2018-06-28 15:49 | disposition expired ==
LOC: COL.ER 03:33
PROVIDERS: Emergency Medicine
DX: I46.9 Cardiac arrest, cause unspecified (principal); E11.9 Type 2 diabetes mellitus without complications; I50.9 Heart failure, unspecified; I25.10 Atherosclerotic heart disease of native coronary artery without angina pectoris; Z95.5 Presence of coronary angioplasty implant and graft; Z79.82 Long term (current) use of aspirin; Z79.01 Long term (current) use of anticoagulants; Z79.84 Long term (current) use of oral hypoglycemic drugs
CPT/HCPCS: J0171; J0282; J0330; J0461; J2405; J7030